=== PATIENT | female | born 2000 | race Caucasian/White ===

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

== ENCOUNTER 2021-02-27 09:22 | Emergency (ER) | payer OTHER ==
[~2021-02-27 09:22] MED LIST changes: +PROVENTIL HFA6.7 GM INH; +ZOFRAN ODT 4 MG4 MG PO
[2021-02-27 10:13] LABS: RED BLOOD COUNT 4.8 M/UL (4.00-5.10); WHITE BLOOD COUNT 13.3 K/UL (4.5-11.0)
[2021-02-27 10:40] LABS: BUN/CREATININE RATIO 11 (0-10)
[2021-02-27] MEDS ORDERED: MACROBID 100 M100 MG PO (15:46)
[2021-02-27] MEDS ORDERED: OMNICEF 300 MG300 MG PO (15:50)
== END 2021-02-27 16:20 | disposition home or self-care (01) ==
LOC: ER1 09:22
PROVIDERS: Emergency Medicine
DX: R07.9 Chest pain, unspecified (principal); R00.0 Tachycardia, unspecified
CPT/HCPCS: 36415; 71045; 80053; 80307; 81001; 82550; 82553; 83605; 83735; 83874; 84484; 84703; 85025; 85379; 87040; 87086; 93005; 99285; J7030; Q9967